=== PATIENT | female | born 1965 | race Caucasian/White ===

== ENCOUNTER 2023-06-28 18:28 | Emergency (ER) | payer MEDICAID, SELFPAY ==
[2023-06-28] VITALS (9 sets, daily range): BP systolic 88–124; BP diastolic 49–71; PULSE 65–88; RESP 11–23; TEMP 36.2–36.5; O2SAT 93–99
--- NOTE | 2023-06-28 18:52 | EKG12_ITS ---
Test Reason : DIZZINESS Blood Pressure : / mmHG Vent. Rate : 073 BPM Atrial Rate : 073 BPM P-R Int : 170 ms QRS Dur : 084 ms QT Int : 422 ms P-R-T Axes : 042 047 057 degrees QTc Int : 464 ms Normal sinus rhythm Normal ECG Confirmed by Javon Macias ([id number]), editor publications IRENE APPIAH ([id number]) on 06/30/2023 9:01:31 AM Referred By: Confirmed By:Javon Macias
--- NOTE | 2023-06-28 18:52 | EDS_ITS ---
HPI History of Present Illness Chief Complaint: Dizziness Narrative Narrative: 58-year-old female presenting with lightheadedness and hypotension. Patient states she started being lightheaded sometime this last week when she was started on losartan 25 mg the week before. Patient states that her blood pressure is usually the max at 120 and most the time is lower closer to 100 systolic. Patient states that her nurse practitioner Irma Saavedra who works for [facility] endocrinology started on the medication because of proteinuria. Patient also states that the nurse practitioner believes she was a type I diabetic not a type II diabetic so she has an appointment for insulin pump comin g up. Patient is currently doing Lantus 20 units twice daily as well as NovoLog 10 units 3 times daily with meals. Patient states she usually only eats twice. She noted that her blood sugar was in the 70s today when she felt lightheaded so she ate some orange chicken and rice and her blood sugar came up into the 170s. She still feels lightheaded. Her friend checked her blood pressure and it was low in the 80s. Patient denies chest pain or shortness of breath but did feel like she might pass out. She is reports she was sweaty with this episode. Patient reports a history of SVT in the past but does not feel that she is having those kind of palpitations. [facility] Medical History Depressed Anxiety Diabetes Amputation of right lower extremity Necrotizing fasciitis of lower leg Necrotizing fasciitis Allergy/AdvReac Type Severity Reaction Status Date / Time acetaminophen (From AdvReac Vomiting Verified 06/28/23 18:30 Darvocet-N) propoxyphene (From AdvReac Vomiting Verified 06/28/23 18:30 Darvocet-N) Social History Smoking Status: Current every day smoker tobacco type: cigarettes and e- cigarettes ROS ROS ED Constitutional Constitutional ED: Reports other Details: Diaphoretic ; Denies chills or fever(s) Eyes Eyes: Denies blurry vision or change in vision ENT ENT ED: Denies ear pain or sore throat Cardiovascular Cardiovascular: Reports palpitations and other Details: Lightheadedness ; Denies chest pain or racing heartbeat Respiratory/Chest Respiratory/Chest: Denies cough, dyspnea or sputum Gastrointestinal Gastrointestinal: Denies abdominal pain, constipation, diarrhea, nausea or vomiting Genitourinary Genitourinary ED: Denies dysuria, hematuria or urinary frequency Musculoskeletal Musculoskeletal: Denies arthralgias, myalgias or neck pain Integumentary Denies abscess, Abrasions or rash Neurologic Neurologic: Denies headache(s), paresthesias or weakness Psychiatric Psychiatric: Denies anxiety, depression, suicidal ideation or suicidal thoughts Endocrine Endocrinology: Denies polydipsia or polyuria EXAM Physical Exam Const Vital Signs: 06/28/23 18:29 06/28/23 19:00 06/28/23 19:30 Temperature 97.2 F L Temperature Source Temporal Pulse Rate 88 70 Respiratory Rate 16 11 L 14 Blood Pressure 88/60 L 91/52 L 93/49 L Blood Pressure Mean 69 60 61 Pulse Ox 99 96 96 Oxygen Delivery Method 06/28/23 19:32 06/28/23 19:45 06/28/23 20:00 Temperature Temperature Source Pulse Rate 67 66 67 Respiratory Rate 17 23 H 20 H Blood Pressure 99/64 106/54 L 106/54 L Blood Pressure Mean 75 69 71 Pulse Ox 93 99 95 Oxygen Delivery Method Room Air Room Air 06/28/23 20:00 06/28/23 20:12 06/28/23 20:30 Temperature Temperature Source Pulse Rate 65 65 Respiratory Rate 18 11 L Blood Pressure 99/64 117/64 Blood Pressure Mean 74 81 Pulse Ox 94 97 Oxygen Delivery Method Room Air 06/28/23 21:00 06/28/23 21:44 Temperature 97.7 F L Temperature Source Pulse Rate 69 71 Respiratory Rate 20 H 16 Blood Pressure 124/59 H 112/71 Blood Pressure Mean 77 84 Pulse Ox 99 97 Oxygen Delivery Method Positive well nourished HEENT Reports moist mucous membranes Eyes PERRL and EOMs intact bilaterally Chest Wall inspection of chest normal Resp normal respiratory effort Auscultation: Negative for rales, rhonchi or wheezes Cardio regular rate and regular rhythm GI normal to inspection, nondistended, normoactive bowel sounds Neuro oriented x3 and CN's II-XII intact bilaterally Sensorium / Orientation: alert Motor Exam: strength 5/5 throughout Psych mental status grossly normal Skin no rashes or lesions noted and no wounds MDM MDM MDM Narrative Medical decision making narrative: Patient presenting with lightheadedness. Patient states her blood pressure is usually on the lower side but her nurse practitioner wanted to start her on losa rtan for proteinuria. Patient started this about 2 weeks ago and had a couple episodes of lightheadedness this last week. She states today she was significantly lightheaded and she initially thought it was her blood sugar so she ate some food and she was still lightheaded. Her friend checked her blood pressure and it was in the 80s. Patient took losartan 25 mg this morning. Differential includes ACS, CHF, dehydration, anemia, electrolyte abnormality, medication side effect. CBC will be obtained to assess white blood cell count, hemoglobin, platelets. BMP to assess renal function, electrolytes, glucose. High-sensitivity troponin EKG to assess for ischemia/dysrhythmia. Chest x-ray to rule out pneumonia or other acute abnormality. Patient was given IV fluids for the hypotension. CBC shows white blood cell count 12.3. Hemoglobin 11.7. Platelets are 213. Creatinine is 1.15 without any comparison but patient was given 2 L of IV fluids. Potassium low at 3.2 and she was given 40 mill equivalents of potassium. High-sensitivity troponin 5. BNP 12.8. On reevaluation the patient's blood pressure is up to 112/71 which is near baseline. I recommended that she discontinue the use of losartan till she can follow-up. Patient was amenable this plan and she is discharged home in stable condition. Impression: 1. Hypotension 2. Medication side effect Lab Data Attestation: I reviewed the patient's lab results. Labs: Laboratory Results - last 24 hr 06/28/23 19:27 WBC 12.3 H RBC 4.27 Hgb 11.7 L Hct 37.4 MCV 87.6 MCH 27.4 MCHC 31.3 L RDW Std Deviation 43.9 RDW Coeff of Marcus 13.7 Plt Count 213 MPV 10.3 Immature Gran % (Auto) 0.300 Neut % (Auto) 74.1 H Lymph % (Auto) 17.9 L [place] % (Auto) 6.3 Eos % (Auto) 1.1 Baso % (Auto) 0.3 Absolute Neuts (auto) 9.1 H Absolute Lymphs (auto) 2.21 Nucleated RBC % 0 Sodium 140 Potassium 3.2 L Chloride 109 H Carbon Dioxide 26.0 Anion Gap 5 BUN 9 Creatinine 1.15 H Estim Creat Clear Calc 61.88 Est GFR (MDRD) Af Amer 63 Est GFR (MDRD) Non-Af 52 L BUN/Creatinine Ratio 7.8 L Glucose 236 H Calcium 7.7 L Troponin I High Sens 5 B-Natriuretic Peptide 12.8 Radiography Diagnostic Testing: Clinical Impression(s) from Imaging Studies Chest X-Ray 06/28/23 19:10 IMPRESSION: Normal x-ray examination of the chest. Electronically Signed: Jefferson Monzon MD at 19:53 EDT , Discharge Plan Triage Chief Complaint: Dizziness ED Provider: Abad Thurman Dx/Rx/DC Orders Instructions: ED Hypotension, Orthostatic Primary Care Provider: Jerry Walsh Referrals: Jerry Walsh MD [Primary Care Provider] - Print Language: Lithuanian Disposition Disposition: Home, Self Care Discharge Date/Time: 06/28/23 21:59
[2023-06-28] MEDS: 0.9% Normal Saline (1000mL) 1,000 ML 999 ML IV ×2 (19:02→20:11)
--- NOTE | 2023-06-28 19:10 | RAD_ITS ---
STUDY: X-RAY CHEST REASON FOR EXAM: Female, 58 years old. chest pain TECHNIQUE: Single AP portable view of the chest. COMPARISON: None. FINDINGS: The lungs are clear and expanded. There is no demonstrated pleural abnormality. Normal size heart. Normal mediastinum and salima. Normal visualized pulmonary arteries. Normal visualized aortic arch and descending thoracic aorta. Normal visualized thoracic spine. Normal visualized ribs, clavicles, and shoulders. There is no demonstrated abnormality of the visualized soft tissue structures of the upper abdomen. RAD/Chest 1 View (Portable) IMPRESSION: Normal x-ray examination of the chest. Electronically Signed: Jefferson Monzon MD at 19:53 EDT ,
[2023-06-28 19:34] LABS: Absolute Lymphocyte Count 2.21 X10^3/uL (0.83-4.51); Absolute Neutrophil Count 9.1 X10^3/uL (2.0-7.7); Basophil# 0.04 X10^3/uL; Basophil% 0.3 % (0-1); Eosinophil# 0.14 X10^3/uL; Eosinophils% 1.1 % (0-5); Hematocrit 37.4 % (37-47); Hemoglobin 11.7 g/dL (12.0-15.0); Lymphocyte # 2.21 X10^3/ul (0.83-4.51); Lymphocyte % 17.9 % (19-41); Mean Corp Hgb Conc 31.3 g/dL (32-36); Mean Corpuscular Hgb 27.4 pg (27.0-32.0); Mean Corpuscular Volume 87.6 fL (81-99); Mean Platelet Vol. 10.3 fl (6.2-12.0); Monocyte# 0.78 X10^3/uL; Monocyte% 6.3 % (0-10); NRBC Flagged by Analyzer 0 % (0-5); Neutrophil # 9.13 X10^3/uL (2.7-7.7); Neutrophil % 74.1 % (47-70); Platelet Count 213 K/mm3 (150-450); RBC Distribution Width CV 13.7 % (11.6-14.6); RBC Distribution Width SD 43.9 fl (35.1-43.9); Red Blood Count 4.27 M/mm3 (4.2-5.4); White Blood Count 12.3 K/mm3 (4.4-11.0)
[2023-06-28 19:55] LABS: BNP,B-Type NATRIURETIC PEPTIDE 12.8 pg/mL (0-100)
[2023-06-28 20:00] LABS: Anion Gap 5 (5-15); BUN 9 mg/dL (7-18); BUN/Creat Ratio 7.8 RATIO (10-20); Calcium,Total 7.7 mg/dL (8.5-10.1); Chloride 109 mmol/L (98-107); Creatinine, Serum 1.15 mg/dL (0.55-1.02); EST Glomerular Filtration Rate 52 mL/min (>60); Est Glom Filt Rate - Afr Amer 63 mL/min (>60); Estimated Creatinine Clearance 61.88 ml/min; Glucose 236 mg/dL (74-106); Potassium 3.2 mmol/L (3.5-5.1); Sodium Level 140 mmol/L (136-145); Troponin-I HS 5 pg/mL (3.0-54.0)
[2023-06-28] MEDS: Potassium Chloride Oral Soln 20 MEQ/15 ML UDC 40 MEQ PO (20:11)
== END 2023-06-28 21:59 | disposition home or self-care (01) ==
PROVIDERS: Emergency Provider Student in an Organized Health Care Education/Training Program; PCP Family Medicine; Visit Provider Student in an Organized Health Care Education/Training Program
DX: I95.2 Hypotension due to drugs (principal); E10.9 Type 1 diabetes mellitus without complications; T50.905A Adverse effect of unspecified drugs, medicaments and biological substances, initial encounter; E87.6 Hypokalemia; F17.210 Nicotine dependence, cigarettes, uncomplicated; F17.290 Nicotine dependence, other tobacco product, uncomplicated
CPT/HCPCS: 71045; 80048; 83880; 84484; 85025; 90471; 93005; 96360; 96361; 99284; J7030; A4216

== ENCOUNTER 2023-08-10 19:04 | Emergency (ER) | payer MEDICAID, SELFPAY ==
[2023-08-10 19:06] VITALS: BP 120/59; PULSE 68; RESP 18; TEMP 36.7; O2SAT 100; BMI 34.0
--- NOTE | 2023-08-10 19:42 | EDS_ITS ---
HPI <ABIDA Guzmán - Last Filed: 08/10/23 20:36> History of Present Illness Chief Complaint: Edema Narrative Narrative: Patient is a 58-year-old female with history of hypertension, diabetes, history of necrotizing fasciitis, she did have an [id number] amputation completed November 2021. Patient states over the last week she noticed some swelling to her left lower leg. She has not been walking that much secondary to her prosthetic not fitting properly. She is currently working on this. She denies any fever or chills. Denies any history of blood clots in legs or lungs. PFSH <ABIDA Guzmán - Last Filed: 08/10/23 20:36> ON LICENSE OF [facility] Medical History Depressed Anxiety Diabetes Amputation of right lower extremity Necrotizing fasciitis of lower leg Necrotizing fasciitis Home Medications ?Medication ?Instructions ?Recorded ?Last Taken ?Type acetaminophen 500 mg tablet 500 mg PO Q6H PRN PRN pain 08/10/23 Unknown History apremilast 30 mg tablet (Otezla) 30 mg PO BID 08/10/23 Unknown History aspirin 325 mg tablet,delayed 325 mg PO BID blood clot 08/10/23 Unknown History release aspirin 81 mg chewable tablet 1 tab PO DAILY 08/10/23 Unknown History blood sugar diagnostic (OneTouch 08/10/23 Unknown History Ultra Test strips) furosemide 40 mg tablet (Lasix) 40 mg PO DAILY #4 tabs 08/10/23 Unknown Rx losartan 25 mg tablet 12.5 mg PO DAILY 08/10/23 Unknown History Allergy/AdvReac Type Severity Reaction Status Date / Time acetaminophen (From AdvReac Vomiting Verified 08/10/23 19:08 Darvocet-N) propoxyphene (From AdvReac Vomiting Verified 08/10/23 19:08 Darvocet-N) Social History Smoking Status: Current every day smoker tobacco type: cigarettes and e- cigarettes ROS <ABIDA Guzmán - Last Filed: 08/10/23 20:36> ROS ED ROS Narrative Constitutional: Negative for fever, chills, weight loss, weakness Eyes: Negative for vision loss, vision change, double vision ENT: Negative for any sore throat, ear pain, congestion Cardiovascular: Negative for any chest pain, tightness, palpitations Respiratory: Negative for any cough, sputum production, hemoptysis, dyspnea, dyspnea on exertion, orthopnea Gastrointestinal: Negative for any abdominal pain, nausea, vomiting, diarrhea, constipation, blood in stool, blood in vomit : Negative for any urinary frequency, dysuria, retention, blood in urine Muscle skeletal: Negative for any neck pain, back pain. Patient has some edema to the right lower extremity Neurological: Negative for any headache, syncope, dizziness Skin: Negative for any rashes, itching, abrasions, lacerations Psychiatric: Negative for any depression, anxiety, stress, suicidal ideation, homicidal ideation Hematologic: Negative for any excessive bruising, easy bleeding EXAM <ABIDA Guzmán - Last Filed: 08/10/23 20:36> Physical Exam Narrative Exam Narrative: Vital signs reviewed. HEET: Head normocephalic atraumatic, TMs clear bilaterally. Posterior pharynx is clear, moist mucous membranes. Nares clear bilaterally. Neck: Supple with no lymphadenopathy or tenderness. No signs of meningismus. Cardiac: Regular rate and rhythm no murmurs gallops or rubs, equal peripheral pulses bilaterally. Respiratory: Lungs clear to auscultation bilaterally. No chest tenderness. Abdomen: Soft, nontender, nondistended. No abdominal bruit or pulsatile masses. No hepatosplenomegaly Extremities: Patient's right lower extremity is an [id number] amputation. Looks well, stump looks well. Left lower extremity shows some pitting edema to the foot however, there is no significant swelling, there is no evidence of cellulitis, there is no significant calf tenderness Neuro: Cranial nerves II through XII intact, no focal neurological deficits. Skin: Clean dry and intact with no rash, purpura, petechiae, vesicles or pustules. Backs/flank: No CVA tenderness, no midline spinal tenderness, no deformity. Psych: Normal mood and affect. No SI, HI or acute psychosis. Const Vital Signs: 08/10/23 19:06 08/10/23 19:15 08/10/23 20:45 Temperature 98.1 F 97 F L Temperature Source Temporal Pulse Rate 68 64 Respiratory Rate 18 18 Respiratory Effort Normal Respiratory Pattern Normal Blood Pressure 120/59 L 118/64 Blood Pressure Mean 79 82 Pulse Ox 100 100 Oxygen Delivery Method Room Air <Dr. Carson Valencia DO - Last Filed: 08/10/23 20:53> Physical Exam Const Vital Signs: 08/10/23 19:06 08/10/23 19:15 08/10/23 20:45 Temperature 98.1 F 97 F L Temperature Source Temporal Pulse Rate 68 64 Respiratory Rate 18 18 Respiratory Effort Normal Respiratory Pattern Normal Blood Pressure 120/59 L 118/64 Blood Pressure Mean 79 82 Pulse Ox 100 100 Oxygen Delivery Method Room Air [facility] <ABIDA Guzmán - Last Filed: 08/10/23 20:36> [facility] Lab Data Labs: Laboratory Results - last 24 hr 08/10/23 19:55 Sodium 142 Potassium 4.1 Chloride 110 H Carbon Dioxide 28.0 Anion Gap 4 L BUN 13 Creatinine 0.56 Estim Creat Clear Calc 135.21 Est GFR (MDRD) Af Amer 144 Est GFR (MDRD) Non-Af 119 BUN/Creatinine Ratio 23.3 H Glucose 149 H Calcium 8.3 L Treatment and Re-Evaluation :: Differential diagnosis includes however is not limited to: Cellulitis, DVT, neuropathy, vascular disease Patient appears generally well, patient appears nontoxic, vital signs are stable. Presenting to the emergency department complaints of left lower leg edema. Patient has no shortness of breath, no chest pain. Left leg appears to be intact, no cellulitis, patient will receive a a BMP. Patient's laboratory values show a normal creatinine 0.56, patient's potassium is 4.1. At this time, patient be given a Lasix tablet oral. This is secondary to the swelling to her left lower extremity. I spoke with the patient at length, patient also has feeling of swelling in her hands, I have low suspicion for any DVT. I did tell the patient that I could provide a DVT study tomorrow however she states she does not want to come back tomorrow, does not think she needs it. Patient be given 4 more doses of Lasix that she will take in the morning. She is instructed to return for any worsening symptoms. All questions answered, stable for discharge. <Dr. Carson Valencia DO - Last Filed: 08/10/23 20:53> [facility] Lab Data Labs: Laboratory Results - last 24 hr 08/10/23 19:55 Sodium 142 Potassium 4.1 Chloride 110 H Carbon Dioxide 28.0 Anion Gap 4 L BUN 13 Creatinine 0.56 Estim Creat Clear Calc 135.21 Est GFR (MDRD) Af Amer 144 Est GFR (MDRD) Non-Af 119 BUN/Creatinine Ratio 23.3 H Glucose 149 H Calcium 8.3 L Treatment and Re-Evaluation :: Differential diagnosis includes however is not limited to: Cellulitis, DVT, neuropathy, vascular disease Patient appears generally well, patient appears nontoxic, vital signs are stable. Presenting to the emergency department complaints of left lower leg edema. Patient has no shortness of breath, no chest pain. Left leg appears to be intact, no cellulitis, patient will receive a a BMP. Patient's laboratory values show a normal creatinine 0.56, patient's potassium is 4.1. At this time, patient be given a Lasix tablet oral. This is secondary to the swelling to her left lower extremity. I spoke with the patient at length, patient also has feeling of swelling in her hands, I have low suspicion for any DVT. I did tell the patient that I could provide a DVT study tomorrow however she states she does not want to come back tomorrow, does not think she needs it. Patient be given 4 more doses of Lasix that she will take in the morning. She is instructed to return for any worsening symptoms. All questions answered, stable for discharge. I have personally performed a face to face assessment of the patient and have reviewed the MARY KAY Note. I performed a substantive portion of the visit including all aspects of the following. My palumbo findings include: History is 58-year-old female status post right BKA presenting for concern with swelling particular the left leg. She notes more of a diffuse swelling but worse in the left leg including her hands. She denies any known renal disorders. She is a diabetic and also takes losartan. She has worries of blood clots cellulitis has had necrotizing fasciitis in the past. No reported fevers. No change in diet. No history of CHF. She does note that she has been sitting in a chair more frequently especially since the BKA Exam is patient has 2+ pitting edema up to the mid tibia on the left. I do not appreciate significant swelling of the hands. The BKA stump appears well. I am not seeing any cellulitic changes of either leg. There is a skin avulsion that appears healing on the left medial distal leg. Skin changes associated with psoriatic disease. Medical Decison Making patient's kidney function appears normal today as does her electrolytes. I do not have duplex ultrasound but we did discuss returning tomorrow for ultrasound which she does not feel as needed. Klein write for her to have Lasix over the next 4 days keep her legs elevated. Monitor salt intake. Follow-up with primary care.] Discharge Plan Triage Chief Complaint: Edema ED Midlevel Provider: Fabien Covarrubias ED Provider: Carson Valencia Dx/Rx/DC Orders Clinical Impression: Leg edema Instructions: ED Peripheral Edema, Bilateral Prescriptions: New furosemide [Lasix] 40 mg tablet 40 mg PO DAILY Qty: 4 0RF No Action losartan 25 mg tablet 12.5 mg PO DAILY acetaminophen 500 mg tablet 500 mg PO Q6H PRN PRN (Reason: pain) (DME) OneTouch Ultra Test Strip 2 strip MISCELLANEOUS BID aspirin 325 mg tablet,delayed release (DR/EC) 325 mg PO BID aspirin 81 mg tablet,chewable 1 tab PO DAILY Otezla 30 mg tablet 30 mg PO BID Primary Care Provider: Jerry Walsh Referrals: Jerry Walsh MD [Primary Care Provider] - Activity Restrictions/Additional Instructions: Keep your left leg elevated. Take your Lasix 1 time in the morning until empty. Return for any worsening symptoms. Print Language: Chinese Disposition Disposition: Home, Self Care Discharge Date/Time: 08/10/23 20:46
[2023-08-10 20:22] LABS: Anion Gap 4 (5-15); BUN 13 mg/dL (7-18); BUN/Creat Ratio 23.3 RATIO (10-20); Calcium,Total 8.3 mg/dL (8.5-10.1); Chloride 110 mmol/L (98-107); Creatinine, Serum 0.56 mg/dL (0.55-1.02); EST Glomerular Filtration Rate 119 mL/min (>60); Est Glom Filt Rate - Afr Amer 144 mL/min (>60); Estimated Creatinine Clearance 135.21 ml/min; Glucose 149 mg/dL (74-106); Potassium 4.1 mmol/L (3.5-5.1); Sodium Level 142 mmol/L (136-145)
[2023-08-10] MEDS: Furosemide 40 MG Tablet PO (20:44)
[2023-08-10 20:45] VITALS: BP 118/64; PULSE 64; RESP 18; TEMP 36.1; O2SAT 100
== END 2023-08-10 20:46 | disposition home or self-care (01) ==
PROVIDERS: Nurse Practitioner; Emergency Provider Emergency Medicine; PCP Family Medicine; Visit Provider Emergency Medicine
DX: R60.0 Localized edema (principal); Z89.611 Acquired absence of right leg above knee; E11.9 Type 2 diabetes mellitus without complications; I10 Essential (primary) hypertension; F17.210 Nicotine dependence, cigarettes, uncomplicated; F17.290 Nicotine dependence, other tobacco product, uncomplicated; Z79.82 Long term (current) use of aspirin; Z79.899 Other long term (current) drug therapy
CPT/HCPCS: 36415; 80048; 99282